=== PATIENT | female | born 1990 | race Caucasian/White ===

== ENCOUNTER 2020-03-23 08:53 | Outpatient (CLI) | payer BC, SELFPAY ==
--- NOTE | ~2020-03-23 | US_ITS ---
EXAMINATION: US right upper quadrant EXAM DATE: 03/23/2020 09:29 INDICATION: R74.8 - Abnormal levels of other serum enzymes. TECHNIQUE: Multiple grayscale and Doppler images of the abdomen right upper quadrant were obtained (b y a technologist who performed the scan) and subsequently reviewed. There is no prior study for anthony sarabia. FINDINGS: The pancreatic head and body are normal in appearance. The pancreatic tail is not visualized. There is echogenic liver parenchyma, hepatic steatosis. There are no focal liver lesions identified. Th ere is no evidence of intrahepatic biliary duct dilation. Portal venous flow was seen in the hepatop edal, normal direction and has normal Doppler waveform. No right-sided hydronephrosis. Common bile duct measures 3 mm, which is normal. The gallbladder wall is normal in thickness, with ex pected amount of distention. No sonographic evidence of pericholecystic fluid. There is no cholelit hiases. Technologist performing exam reports patient did not demonstrate sonographic Jones's sign. Please note that this sign is less reliable in patients who have received pain medication. IMPRESSION: 1. Unremarkable abdominal ultrasound exam. Reviewed, dictated and finalized at location B. FICIAL FLOWERS STARCHER
== END 2020-03-23 08:54 | disposition home or self-care (01) ==
PROVIDERS: PCP Internal Medicine; Visit Provider Nurse Practitioner
DX: R74.8 Abnormal levels of other serum enzymes (principal)
CPT/HCPCS: 76705

== ENCOUNTER 2022-09-11 08:41 | Outpatient (CLI) | payer OTHER, SELFPAY ==
--- NOTE | 2022-09-21 18:26 | WPDHOMESLEEP ---
Sleep Study - Home Unattended Date of Study: 09/11/22 Ordering Provider: Earl Varela DO Interpreting Provider: Molly Ramirez DO Home Sleep Study Type: Watch PAT Height: 1.7 m Weight: 113.398 kg Body Mass Index: 39.1 Neck Circumference (inches): 17.75 Emily: 5 Reason for Sleep Study Had risk factors on DOT physical Sleep History The patient is a 32-year-old male with anxiety, depression, HTN, GERD, migraines, gwektx-eq-fzia transgender person and obesity that had a sleep study ordered due risk factors for sleep apnea. 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 He denies awakening from sleep short of breath. He frequently awakens at night with heartburn, belching or cough. He constantly snores loudly enough that others complain. He occasionally has trouble sleeping when he has a cold. He denies waking up gasping for air throughout the night. He denies having breathing problems at night observed by himself or others. He occasionally sweats excessively at night. He denies having heart palpitations or irregular heartbeats during the night. He denies falling asleep during the day and while driving. He denies sleep paralysis and cataplexy. He denies having trouble at school or work due to sleepiness. He occasionally experiences vivid dreamlike scenes upon awakening or falling asleep. He denies feeling afraid of going to sleep. He occasionally has nightmares and occasionally remembers his dreams. He frequently has thoughts racing through his mind. He occasionally feels sad or depressed. He frequently has anxiety. He occasionally has muscular tension. He occasionally notices parts of his body jerk. He frequently kicks during the night. He frequently has crawling and aching feelings in his legs and frequently has leg pain during the night. He frequently grinds his teeth during sleep and frequently awakens with morning jaw pain. He is occasionally bothered by pain during the day and occasionally awakened by pain during the night. He occasionally wakes up feeling stiff in the morning. He frequently wakes up with sore or achy muscles. He frequently wakes up with pain in the neck, spine or other joints. He goes to bed at 6:00 a.m. on weekdays and between 6-7 a.m. on the weekends. It takes him 2-3 hours to fall asleep. He wakes up 3-4 times throughout the night and it can take up to 2 hours to fall back asleep. He wakes up between 2-3 p.m. an weekdays and between 4-5 p.m. on the weekends. He drinks 1/2 of a caffeinated beverage per day. He denies tobacco, alcohol and recreational drug use. PMF Past Medical History Medical History Anxiety Arthritis Depression Essential hypertension Hipmeb-fe-annz transgender person GERD (gastroesophageal reflux disease) Headache Hip pain, bilateral Long-term current use of testosterone replacement therapy Migraine Migraine Obesity (BMI 35.0-39.9 without comorbidity) Sleep apnea Surgical History Surgical History H/O wisdom tooth extraction 2009 History of mastectomy, total 2018 Family History Family History Other Adenoid cystic carcinoma Social History Social History Smoking status: Never smoker Alcohol intake: never Substance use: never Lack of Transportation: No Lack of Food: Never True Current Housing: I Have Housing Concerned About Future Housing: No Difficulty Paying Gas/Electric Bills: No Difficulty Paying for Meds: No Currently Unemployed: No Education: Trade/Vocational Certificate Difficulty w/ Childcare or Family Care: No Living arrangements: alone Medications Home Medications Medication Instructions Recorded Confirmed Type rizatriptan 10 mg disintegrating See Rx Instructions .Rout
[2022-09-21 18:29] VITALS: BMI 39.1
== END 2022-09-12 15:48 | disposition home or self-care (01) ==
LOC: ANHCSM 08:42
PROVIDERS: PCP Internal Medicine; Visit Provider Internal Medicine
DX: G47.10 Hypersomnia, unspecified (principal); G47.33 Obstructive sleep apnea (adult) (pediatric)
CPT/HCPCS: 95800

== ENCOUNTER 2023-02-04 13:29 | Emergency (ER) | payer OTHER, SELFPAY ==
[2023-02-04 13:45] VITALS: BP 148/90; PULSE 81; RESP 16; TEMP 36.5; O2SAT 99
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
== END 2023-02-04 14:10 | disposition home or self-care (01) ==
PROVIDERS: Emergency Provider Nurse Practitioner Family; PCP Internal Medicine
DX: S16.1XXA Strain of muscle, fascia and tendon at neck level, initial encounter (principal); I10 Essential (primary) hypertension; Z79.899 Other long term (current) drug therapy; V69.49XA Driver of heavy transport vehicle injured in collision with other motor vehicles in traffic accident, initial encounter; Y92.411 Interstate highway as the place of occurrence of the external cause
CPT/HCPCS: 99213; G0463

== ENCOUNTER 2024-04-15 08:39 | Outpatient (CLI) | payer BC, SELFPAY ==
[2024-04-15 15:04] LABS: Basophils Absolute Auto 0.1 K/mm3 (0.0-0.1); Basophils Percent Auto 0.9 % (0.2-1.2); Eosinophils Absolute Auto 0.2 K/mm3 (0-0.3); Eosinophils Percent Auto 2.3 % (0-4.4); Hematocrit 42.8 % (37.0-47.0); Hemoglobin 14.7 g/dL (12.0-15.0); Immature Granulocyte Absolute 0.02 K/mm3 (0.00-0.031); Immature Granulocyte Percent A 0.2 % (0-0.5); Lymphocytes Absolute Auto 2.29 K/mm3 (0.9-3.2); Lymphocytes Percent Auto 27.9 % (18.3-44.2); Mean Corpuscular HGB Conc 34.3 g/dl (32-36); Mean Corpuscular Hemoglobin 32.5 pg (26-34); Mean Corpuscular Volume 94.7 fl (80-100); Mean Platelet Volume 12.3 fl (7.4-10.4); Monocytes Absolute Auto 0.4 K/mm3 (0.1-0.6); Monocytes Percent Auto 4.9 % (2.6-8.5); Neutrophils Absolute Auto 5.2 K/mm3 (1.3-6.7); Neutrophils Percent Auto 63.8 % (45.5-73.1); Platelet Count Result 195 k/mm3 (150-375); Red Blood Count 4.52 M/mm3 (4.2-5.4); Red Cell Distribution Width 13.1 % (11.5-14.5); White Blood Count 8.2 K/mm3 (4.5-10.0)
[2024-04-15 16:22] LABS: Alanine Aminotransferase 93 U/L (6-35); Albumin Level 4.5 g/dL (3.5-5.1); Alkaline Phosphatase 90 U/L (38-126); Anion Gap 11 mmol/L (4-12); Aspartate Amino Transferase 62 U/L (14-36); Bilirubin,Total 0.9 mg/dL (0.2-1.3); Blood Urea Nitrogen 13 mg/dL (7-17); Calcium 9.7 mg/dL (8.4-10.2); Carbon Dioxide 22 mmol/L (22-30); Chloride 108 mmol/L (98-107); Cholesterol 155 mg/dL (0-200); Estimated Glomerular Filt Rate 60; Glucose 107 mg/dL (65-110); HDL Direct 35 mg/dL; Potassium 3.6 mmol/L (3.4-5.0); Sodium 141 mmol/L (137-145); Triglycerides 111 mg/dL (<150)
[2024-04-15 16:33] LABS: LDL Cholesterol Direct 99 mg/dL
[2024-04-15 19:02] LABS: Free T3 4.39 pg/mL (2.32-6.09)
[2024-04-16 11:03] LABS: GGT 42 U/L (3-50)
== END 2024-04-15 08:40 | disposition home or self-care (01) ==
LOC: ANHGOSHLAB 08:41
PROVIDERS: PCP Internal Medicine; Visit Provider Internal Medicine
DX: E03.9 Hypothyroidism, unspecified (principal); R74.8 Abnormal levels of other serum enzymes; Z79.890 Hormone replacement therapy
CPT/HCPCS: 36415; 80053; 80061; 82977; 84402; 84403; 84443; 84481; 85025

== ENCOUNTER 2024-08-04 07:01 | Emergency (ER) | payer OTHER, BC, SELFPAY ==
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
[2024-08-04 07:00] VITALS: BP 118/77; PULSE 116; RESP 16; TEMP 36.9; O2SAT 95
[2024-08-04 07:30] VITALS: BP 111/62; PULSE 100; RESP 16; O2SAT 97
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
[2024-08-04 08:00] VITALS: BP 119/77; PULSE 94; RESP 16; O2SAT 100
[2024-08-04] MEDS: KETOROLAC 30 MG/ML VIAL (*BKC) IV PUSH (08:03)
[2024-08-04 08:05] LABS: Basophils Percent Auto 0.4 % (0.2-1.2); Eosinophils Absolute Auto 0.1 K/mm3 (0-0.3); Eosinophils Percent Auto 1.2 % (0-4.4); Hematocrit 46.8 % (42.0-52.0); Hemoglobin 16.5 g/dL (14.0-18.0); Immature Granulocyte Absolute 0.03 K/mm3 (0.00-0.031); Immature Granulocyte Percent A 0.3 % (0-0.5); Lymphocytes Absolute Auto 1.98 K/mm3 (0.9-3.2); Lymphocytes Percent Auto 21.6 % (18.3-44.2); Mean Corpuscular HGB Conc 35.3 g/dl (32-36); Mean Corpuscular Hemoglobin 32.2 pg (26-34); Mean Corpuscular Volume 91.2 fl (80-100); Mean Platelet Volume 11.3 fl (7.4-10.4); Monocytes Absolute Auto 0.5 K/mm3 (0.1-0.6); Monocytes Percent Auto 5.3 % (2.6-8.5); Neutrophils Absolute Auto 6.5 K/mm3 (1.3-6.7); Neutrophils Percent Auto 71.2 % (45.5-73.1); Platelet Count Result 193 k/mm3 (150-375); Red Blood Count 5.13 M/mm3 (4.6-6.20); Red Cell Distribution Width 12.1 % (11.5-14.5); White Blood Count 9.2 K/mm3 (4.5-10.0)
[2024-08-04 08:13] LABS: Alanine Aminotransferase 119 U/L (6-50); Albumin Level 4.6 g/dL (3.5-5.1); Alkaline Phosphatase 91 U/L (38-126); Anion Gap 11 mmol/L (4-12); Aspartate Amino Transferase 56 U/L (17-59); Bilirubin,Total 0.8 mg/dL (0.2-1.3); Blood Urea Nitrogen 10 mg/dL (9-20); Calcium 9.6 mg/dL (8.4-10.2); Carbon Dioxide 21 mmol/L (22-30); Chloride 108 mmol/L (98-107); Estimated CRCL calculation 108 ml/min; Estimated Glomerular Filt Rate > 60; Glucose 99 mg/dL (65-110); Potassium 3.6 mmol/L (3.4-5.0); Sodium 140 mmol/L (137-145); Total Protein 8.2 g/dL (6.3-8.2)
--- OUTSIDE RECORDS SUMMARY | 2024-08-04 08:30 | XMS_ITS | Encounter Summary ---
Author Organization [facility] Health Address [address] [place] [address] Care Team Providers Care Roller Engraver Name Role Phone Earl Varela DO Primary Care Provider [phone] Reason for Visit * Reason Onset Date Comments Future Appointment 10/14/2018 Encounter Details Date Type Department Care Team (Late st Contact Info) Description 10/14/2018 Telephone [facility] [address] [place], [place] [id number] Chace Chowdary MD [address] [place] [address] [place] [id number] Future Appointment Social History Tobacco Use Types Packs/Day Years Used Date Smoking Tobacco: Never Assessed Sex and Gender Information Value Date Recorded Sex Assigned at Not on file Legal Sex Male 11:25 AM CDT Gender Identity Not on file Sexual Orientation Not on file documented as of this encounter Miscellaneous Notes * Telephone Encounter - Abril Jordan - 10/14/2018 4:06 PM CDT Pt called to schedule new appt for female to male transition, pt is new to [facility] so no records on file. Are you ok with a 30 min new slot or would you like me to increase the time? documented in this encounter Plan of Treatment Not on file documented as of this encounter Visit Diagnoses Not on filedocumented in this encounter Care Teams Roller Engraver Relationship Specialty Start Date End Date Earl Varela DO PCP - General 11/11/18 documented as of this encounter
--- OUTSIDE RECORDS SUMMARY | 2024-08-04 08:30 | XMS_ITS | Clinical Summary ---
Author Organization [facility] Address [address] [place] [address] Phone Care Team Providers Care Cotton Inspector Name Role Phone Earl Varela DO Primary Care Provider Allergies No known active allergies Medications topiramate (TOPAMAX) 100 MG Tablet Take 100 mg by mouth 2 times daily. Active famotidine (PEPCID) 20 MG Tablet Take 1 Tab by mouth 2 times daily. 30 Tab 10/30/2018 Active Social History Tobacco Use Types Packs/Day Years Used Date Smoking Tobacco: Never Smokeless Tobacco: Never Alcohol Use Standard Drinks/Week Comments Yes 0 (1 standard drink = 0.6 oz pur e alcohol) rare AUDIT-C Answer Date Recorded Frequency of Alcohol Consumption Never 10/30/2018 Average Number of Drinks Not on file 019 Frequency of Binge Drinking Not on file 10/18 Comments Unknown Sex and Gender Information Value Date Recorded Sex Assigned at Not on file Legal Sex Female 9:54 AM CDT Gender Identity Not on file Sexual Orientation Not on file Last Filed Vital Signs Vital Sign Reading Time Taken Comments Blood Pressure 109/56 10/30/2018 11:30 AM CDT Pulse 79 10/30/2018 11:30 AM CDT Temperature 36.6 C (97.8 F) 10/30/2018 9:15 AM CDT Respiratory Rate 15 10/30/2018 11:30 AM CDT Oxygen Saturation 98% 10/30/2018 11:30 AM CDT Inhaled Oxygen Concentration - - Weight 112.5 kg (248 lb) 10/30/2018 9:15 AM CDT Height 167.6 cm (5' 6) 10/30/2018 9:15 AM CDT Body Mass Index 40.03 10/30/2018 9:15 AM CDT Plan of Treatment Health Maintenance Due Date Last Done Comments Hepatitis C Virus (HCV) Screening 1990 TdaP Immunization 1990 Human Papillomavirus (HPV) Immunization (1 - 3-dose series) 2005 Hepatitis B Immunization (1 of 3 - 19+ 3-dose series) 2009 SARS-COV-2 Immunization ( - 2023- season) 2023 Influenza Immunization (Seas on Ended) 2024 Respiratory Syncytial Virus (RSV) Immunization (Adult) (1 - 1-dose 75+ series) 2065 Meningococcal Immunization (ACWY) Aged Out No longer eligible based on patient's age to complete this topic Pneumococcal Immunization Combined Aged Out No longer eligible based on patient's age to complete this topic Rotavirus Immunization Aged Out No lo nger eligible based on patient's age to complete this topic Insurance Care Teams Cotton Inspector Relationship Specialty Start Date End Date Earl Varela DO [address] [place] [address] [place] [address] PCP - General Internal Medicine 10/30/18
--- OUTSIDE RECORDS SUMMARY | 2024-08-04 08:30 | XMS_ITS | Clinical Summary ---
Author Organization [facility] Address [address] [place] [address] Phone Care Team Providers Care Yeast Culture Developer Name Role Phone Earl Varela DO Primary Care Provider Allergies No known active allergies Medications famotidine (PEPCID) 20 mg tablet Take 20 mg by mouth 2 times daily. 9 Active sertraline (ZOLOFT) 50 mg tablet 2 Active testosterone cypionate (DEPO-TESTOSTER ONE) 200 mg/mL Oil ADM 1 ML IM Q 2 WKS 9 Active ondansetron (ZOFRAN ODT) 4 mg Tablet, Rapid Dissolve Take 1 Tablet (4 mg) by mouth every 8 hours as needed for Nausea/Emesis. Dissolve tablet on top of tongue, then swallow with saliva. 20 Tablet 4 2 Active rizatriptan (MAXALT AMBULATORY CARE) 10 mg Tablet, Rapid Dissolve Take 1 tablet at migraine onset. May be repeated after 2 hours. Maximum use 3 doses per 24 hours and 2-3 days/week on average. 12 Tablet 5 10/07/2022 4:16 PM CDT 3 Active ubrogepant (UBRELVY) 100 mg tablet Take 1 Tablet (100 mg) by mouth at the onset of migraine. May repeat in 2 hours if needed. Max use 2 times per 24 hours and 4 days per week on average. 16 Tablet 5 05/09/2023 10:19 AM CDT 3 Active tiZANidine (ZANAFLEX) 4 mg TabletIndicatio ns:Chronic migraine w/o aura w/o status migrainosus, not intractable,Cer vical myofascial pain syndrome Take 1 Tablet (4 mg) by mouth every 6 hours as needed for Spasm. 30 Tablet 3 10/07/2022 4:16 PM CDT 3 Active topiramate (TOPAMAX) 100 mg tablet Take 1 Tablet (100 mg) by mouth daily. 90 Tablet 3 3 Active verapamiL (VERELAN) 180 mg Sustained Release 24 hour capsuleIndicati ons:Chronic migraine w/o aura w/o status migrainosus, not intractable Take 1 Capsule (180 mg) by mouth daily. 90 Capsule 1 3 Active fremanezumab-vf rm (Ajovy Syringe) 225 mg/1.5 mL SyringeIndicati ons:Chronic migraine w/o aura w/o status migrainosus, not intractable Inject 1.5 mL (225 mg) by subcutaneous injection every 30 days. 4.5 mL 4 Active Active Problems No known active problems Family History Medical History Relation Name Comments Migraines Mother Relation Name Status Comments Mother Social History Tobacco Use Types Packs/Day Years Used Date Smoking Tobacco: Never Smokeless Tobacco: Never Tobacco Cessation:Counseling Given: Not Answered Alcohol Use Standard Drinks/Week Comments Never 0 (1 standard drink = 0.6 oz pur e alcohol) Sex and Gender Information Value Date Recorded Sex Assigned at Not on file Legal Sex Male 4:05 PM BROKERAGE OFFICE MANAGER Gender Identity Not on file Sexual Orientation Not on file Last Filed Vital Signs Vital Sign Reading Time Taken Comments Blood Pressure 138/77 02/19/2022 11:02 AM BROKERAGE OFFICE MANAGER Pulse 95 02/19/2022 11:02 AM BROKERAGE OFFICE MANAGER Temperature - - Respiratory Rate - - Oxygen Saturation 96% 02/19/2022 11:02 AM BROKERAGE OFFICE MANAGER Inhaled Oxygen Concentration - - Weight 121.6 kg (268 lb) 10/09/2021 1:57 PM CDT Height 172.7 cm (5' 8) 02/19/2022 11:02 AM BROKERAGE OFFICE MANAGER Body Mass Index 40.75 10/09/2021 1:57 PM CDT Plan of Treatment Health Maintenance Due Date Last Done Comments DTAP/TDAP/TD VACCINES (1 - Tdap) 2009 HEPATITIS B VACCINES (1 of 3 - 19+ 3-dose series) 2009 INFLUENZA VACCINE (#1) 2023 HPV VACCINES Aged Out No longer eligi ble based on patient's age to complete this topic Insurance BLUE ACCESS CHOICE RX [employer] Commercial RX [employer] Express RX [employer] Express RX [employer] Commercial [employer] Commercial Care Teams Yeast Culture Developer Relationship Specialty Start Date End Date Earl Varela DO [address] [id number] PCP - General Internal Medicine 08/27/21
--- OUTSIDE RECORDS SUMMARY | 2024-08-04 08:30 | XMS_ITS | Clinical Summary ---
Author Organization [facility] Address [address] [place] [address] Care Team Providers Care Pre Fabricator Name Role Phone Earl Varela DO Primary Care Provider [phone] Source Comments [facility],non-owned Affiliates and Associated Physician Practices is amultiple site organization consisting of ambulatory clinics and hospital sitesin [place], [place], [place] and [place]. This disclosure is being madepursuant to the Care Everywhere program and may not contain all information available regarding this patient. Last updated 17.[facility] Allergies No known active allergies Medications * Be aware that medications may not be up to date on this document. Alwaysverify current medications with the patient. clobetasol (TEMOVATE) 0.05 % cream 11/10/2018 Active famotidine (PEPCID) 20 MG tablet Take 20 mg by mouth 2 times daily 10/30/2018 Active testosterone cypionate (DEPO-TESTOTERO NE) 200 MG/ML injection ADM 1 ML IM Q 2 WKS 10/21/2018 Active topiramate (TOPAMAX) 25 MG tablet TK 1 T PO QHS FOR 7 DAYS. INCREASE TO 2 XD 1 10/21/2018 Active triamcinolone acetonide (KENALOG) 0.1 % cream HUMBERTO THIN LAYER EXT AA BID 1 10/21/2018 Active ketoconazole (NIZORAL) 2 % shampooIndicati ons:Tinea corporis Apply to wet skin on rash (abdomen, buttocks, and arm), leave on for 3 minutes, then rinse; three times weekly. 30 days supply 120 mL 4 12/04/2018 Active Active Problems No known active problems Family History Medical History Relation Name Comments High Cholesterol Father Hypertension Father Other Father class 3 obesity Migraine Mother Cancer - Other Paternal Grandfather DVT - Deep Vein Thrombosis Paternal Grandmother Relation Name Status Comments Father Mother Paternal Grandfather Paternal Grandmother Social History Tobacco Use Types Packs/Day Years Used Date Smoking Tobacco: Never Smokeless Tobacco: Never Tobacco Cessation:Counseling Given: No Alcohol Use Standard Drinks/Week Comments Yes 0 (1 standard drink = 0.6 oz pur e alcohol) rare Sex and Gender Information Value Date Recorded Sex Assigned at Not on file Legal Sex Male 11:25 AM CDT Gender Identity Not on file Sexual Orientation Not on file Last Filed Vital Signs Vital Sign Reading Time Taken Comments Blood Pressure 142/84 11/25/2018 8:32 AM CDT Pulse - - Temperature - - Respiratory Rate - - Oxygen Saturation - - Inhaled Oxygen Concentration - - Weight 108.9 kg (240 lb) 11/25/2018 8:32 AM CDT Height 167.6 cm (5' 6) 11/25/2018 8:32 AM CDT Body Mass Index 38.74 11/25/2018 8:32 AM CDT Plan of Treatment Health Maintenance Due Date Last Done Comments HIV SCREENING 2005 HEPATITIS C SCREENING 08/13/2008 DTAP/TDAP/TD VACCINES (1 - Tdap) 2009 HEPATITIS B VACCINE (1 of 3 - 19+ 3-dose series) 2009 COVID-19 VACCINE ( - 2023-2 5 season) 2023 DEPRESSION SCREENING 02/18/2024 INFLUENZA VACCINE (Season Ended) 2024 ZOSTER VACCINE (1 of 2) 2040 HIB VACCINE Aged Out No longer eligi ble based on patient's age to complete this topic HPV VACCINE Aged Out No longer eligi ble based on patient's age to complete this topic MENINGOCOCCAL (Group B) VACC INE SHARED DECISION-MAKING Aged Out No longer eligibl e based on patient's age to complete this topic MENINGOCOCCAL GROUPS A/C/Y/W VACCINE Aged Out No longer eligible b ased on patient's age to complete this topic PNEUMOCOCCAL VACCINE Aged Out No long er eligible based on patient's age to complete this topic Insurance ANTHEM ANTHEM Care Teams Pre Fabricator Relationship Specialty Start Date End Date Earl Varela DO PCP - General 11/11/18
[2024-08-04 09:00] VITALS: BP 113/87; PULSE 94; RESP 16; O2SAT 97
== END 2024-08-04 09:00 | disposition home or self-care (01) ==
PROVIDERS: Emergency Provider Emergency Medicine; PCP Internal Medicine
DX: R51.9 Headache, unspecified (principal); R07.89 Other chest pain; V89.2XXA Person injured in unspecified motor-vehicle accident, traffic, initial encounter; W22.10XA Striking against or struck by unspecified automobile airbag, initial encounter; I10 Essential (primary) hypertension; F41.8 Other specified anxiety disorders; K21.9 Gastro-esophageal reflux disease without esophagitis; E66.9 Obesity, unspecified; Z68.41 Body mass index [BMI] 40.0-44.9, adult
CPT/HCPCS: 36415; 71046; 80053; 85025; 96374; 99284; J1885

== ENCOUNTER 2024-10-14 08:49 | Outpatient (CLI) | payer BC, SELFPAY ==
--- OUTSIDE RECORDS SUMMARY | 2024-10-14 08:54 | XMS_ITS | Clinical Summary ---
Author Organization [facility] Address [address] [place] [address] Care Team Providers Care Hand Fretted Instrument Maker Name Role Phone Earl Varela DO Primary Care Provider [phone] [facility],non-owned Affiliates and Associated Physician Practices is amultiple site organization consisting of ambulatory clinics and hospital sitesin [place], [place], [place] and [place]. This disclosure is being madepursuant to the Care Everywhere program and may not contain all information available regarding this patient. Last updated 17.[facility] Allergies No known active allergies Medications * [...] of 3 - 19+ 3-dose series) 2009 HPV VACCINE (1 - 3-dose SCDM series) 2017 COVID-19 VACCINE (1 - 2023-2 5 season) 2023 DEPRESSION SCREENING 02/18/2024 INFLUENZA VACCINE (#1) 2024 ZOSTER VACCINE (1 of 2) 2040 [...] this topic Insurance ANTHEM ANTHEM Care Teams Hand Fretted Instrument Maker Relationship Specialty Start Date End Date Earl Varela DO PCP - General 11/11/18
--- OUTSIDE RECORDS SUMMARY | 2024-10-14 08:54 | XMS_ITS | Encounter Summary ---
Author Organization [facility] Address [address] [place] [address] Care Team Providers Care Slag Mixer Name Role Phone Earl Varela DO Primary Care Provider [phone] Reason for Visit * Reason Onset Date Comments Future Appointment 10/14/2018 Encounter Details Date Type Department Care Team (Late st Contact Info) Description 10/14/2018 Telephone [facility] [address] [place], [place] [id number] Chace Chowdary MD [address] [place] [address] [address] [place] [id number] Future Appointment Social History Tobacco Use [...] to male transition, pt is new to [facility] so no records on file. Are you ok with a 30 min new slot or would you like me to increase the time? documented in this encounter Plan of Treatment Not on file documented as of this encounter Visit Diagnoses Not on filedocumented in this encounter Care Teams Slag Mixer Relationship Specialty Start Date End Date Earl Vaerla DO PCP - General 11/11/18 documented as of this encounter
--- OUTSIDE RECORDS SUMMARY | 2024-10-14 08:54 | XMS_ITS | Clinical Summary ---
Author Organization [facility] Address [address] [place] [address] Phone Care Team Providers Care Packer Denture Name Role Phone Earl Varela DO Primary [...] 20 Tablet 4 2 Active rizatriptan (MAXALT NEUROLOGICAL SURGEON) 10 mg Tablet, Rapid Dissolve Take 1 [...] on file Legal Sex Male 4:05 PM SOAKING TANK WORKER Gender Identity Not on file Sexual Orientation Not on file Last Filed Vital Signs Vital Sign Reading Time Taken Comments Blood Pressure 138/77 02/19/2022 11:02 AM SOAKING TANK WORKER Pulse 95 02/19/2022 11:02 AM SOAKING TANK WORKER Temperature - - Respiratory Rate - - Oxygen Saturation 96% 02/19/2022 11:02 AM SOAKING TANK WORKER Inhaled Oxygen Concentration - - Weight 121.6 kg (268 lb) 10/09/2021 1:57 PM CDT Height 172.7 cm (5' 8) 02/19/2022 11:02 AM SOAKING TANK WORKER Body Mass Index 40.75 10/09/2021 1:57 PM CDT Plan of Treatment Health Maintenance Due Date Last Done Comments DTAP/TDAP/TD VACCINES (1 - Tdap) 2009 HEPATITIS B VACCINES (1 of 3 - 19+ 3-dose series) 03/2009 HPV VACCINES (1 - 3-dose SCDM series) 2017 INFLUENZA VACCINE (#1) 2024 Insurance BLUE ACCESS CHOICE RX [facility] Commercial RX [employer] RX [employer] Commercial [employer] Commercial Care Teams Packer Denture Relationship Specialty Start Date End Date Earl Varela DO [address] [id number] PCP - General Internal Medicine 08/27/21
--- OUTSIDE RECORDS SUMMARY | 2024-10-14 08:54 | XMS_ITS | Clinical Summary ---
Author Organization [facility] Address [address] [place] [address] Phone Care Team Providers Care Hoseman Name Role Phone Earl aVrela DO Primary Care Provider Allergies No known [...] Virus (HCV) Screening 1990 TdaP Immunization 1990 Hepatitis B Immunization (1 of 3 - 19+ 3-dose series) 2009 Pap Smear 08/19/2011 Human Papillomavirus (HPV) Immunization (1 - 3-dose SCDM series) 2017 Cervical Cancer Screening (CCS) 2020 HPV/Cotest 2020 SARS-COV-2 Immunization ( season) 2023 Influenza Immunization (#1) 2024 Respiratory Syncytial Virus (RSV) Immunization (Adult) [...] to complete this topic Insurance Care Teams Hoseman Relationship Specialty Start Date End Date Earl Varela DO [facility] [facility] [place] [address] PCP - General Internal Medicine 10/30/18
[2024-10-14 14:46] LABS: Alanine Aminotransferase 76 U/L (6-50); Albumin Level 4.5 g/dL (3.5-5.1); Alkaline Phosphatase 92 U/L (38-126); Aspartate Amino Transferase 69 U/L (17-59); Bilirubin,Total 0.6 mg/dL (0.2-1.3); Total Protein 8.1 g/dL (6.3-8.2)
[2024-10-14 15:22] LABS: Thyroid Stimulating Hormone 4.350 uIU/mL (0.465-4.680)
[2024-10-14 17:27] LABS: Free T3 4.41 pg/mL (2.32-6.09); Free T4 Free Thyroxine 1.00 ng/dL (0.78-2.19)
[2024-10-23 00:08] LABS: Free Testosterone (Direct) 2.4 pg/mL (8.7-25.1)
== END 2024-10-14 08:50 | disposition home or self-care (01) ==
LOC: ANHGOSHLAB 08:50
PROVIDERS: PCP Internal Medicine; Visit Provider Internal Medicine
DX: E03.9 Hypothyroidism, unspecified (principal); R74.01 Elevation of levels of liver transaminase levels
CPT/HCPCS: 36415; 80076; 84402; 84403; 84439; 84443; 84481

== ENCOUNTER 2024-10-19 09:25 | Outpatient (CLI) | payer BC, SELFPAY ==
--- NOTE | ~2024-10-19 | US_ITS ---
ULTRASOUND ABDOMEN LIMITED (RIGHT UPPER QUADRANT) Clinical History: R74.0 - Nonspecific elevation of levels of transaminase a... Comparison: Right upper quadrant ultrasound 03/23/2020 Technique: Right upper quadrant sonography Findings: Liver: Enlarged. Echogenic. No intrahepatic biliary ductal dilatation. Normal hepatopedal flow main portal vein. Question extremely subtle micronodular surface. Common Duct: Normal caliber. 4 mm. Gallbladder: No stones. No wall thickening. No pericholecystic fluid. Pancreas: Largely obscured by bowel gas. Right kidney: Unremarkable. Retrohepatic IVC: Unremarkable. IMPRESSION: 1. Hepatomegaly, with steatosis and/or diffuse hepatocellular disease. 2. No acute findings. Reviewed, dictated and finalized at location R.
== END 2024-10-19 09:26 | disposition home or self-care (01) ==
PROVIDERS: PCP Internal Medicine; Visit Provider Nurse Practitioner
DX: R74.01 Elevation of levels of liver transaminase levels (principal)
CPT/HCPCS: 76705